=== PATIENT | female | born 1955 | race Caucasian/White ===

== ENCOUNTER → 2016-08-31 | Outpatient (CLI) | payer BC ==
--- NOTE | 2016-09-01 03:11 | REP ---
Clinical: Cough . Comparison: None . Technique: PA and lateral. Findings: The mediastinum and cardiac silhouette are normal. The lung castaneda are clear and without acute consolidation, effusion, or pneumothorax. The skeletal structures are intact and normal. Impression: 1. No acute cardiopulmonary process. Signed by Nicolas Smith MD 09/01/2016 03:03 A
== END ==
LOC: M WUC 18:15
PROVIDERS: ATTEND Physician Assistant
DX: R05 Cough (principal)

== ENCOUNTER → 2016-12-01 | Outpatient (CLI) | payer BC ==
--- NOTE | 2016-12-01 10:39 | REP ---
Bilateral screening digital mammogram: There are no palpable abnormalities or other breast complaints. The patient states she/he had a clinical breast exam in November 2016. Comparison is 11/09/2012. There is dense breast parenchyma, unchanged. There has been no interval development of masses, areas of structural distortion or clusters of microcalcifications typical of malignancy. Impression: There is no evidence of malignancy. BI-RADS/ACR category 1 mammogram. Negative mammogram. The patient should have a repeat mammogram in 1 year. This mammogram was interpreted with the aid of an FDA-approved computer-aided detection system. A. Negative x-ray reports should not delay biopsy if a dominant or clinically suspicious mass is present. B. Not all breast cancers are not identified by x-ray. C. Adenosis and dense breasts may obscure an underlying neoplasm. The patient letter being requested is M1 dense breasts .
== END ==
LOC: M WHC 08:36
PROVIDERS: ATTEND Nurse Practitioner Family
DX: Z12.31 Encounter for screening mammogram for malignant neoplasm of breast (principal)

== ENCOUNTER → 2017-12-02 | Outpatient (CLI) | payer BC | LOC: M WHC 08:00 | DX: Z12.31 Encounter for screening mammogram for malignant neoplasm of breast (principal) | CPT/HCPCS: 77067 ==

== ENCOUNTER → 2017-12-02 | Outpatient (REF) | payer BC ==
[2017-12-04 14:10] LABS: HPV HYBRID CAPTURE II Negative (Negative)
== END ==
LOC: M SFHCWAGY 08:34
DX: Z12.4 Encounter for screening for malignant neoplasm of cervix (principal); N95.2 Postmenopausal atrophic vaginitis
CPT/HCPCS: G0123

== ENCOUNTER → 2018-12-28 | Outpatient (CLI) | payer MEDICARE ==
--- NOTE | 2018-12-28 13:00 | REPMRS ---
Patient History The patient states she had a clinical breast exam in 12/2018. Family history of breast cancer in paternal grandmother, ovarian cancer in paternal cousin. 3 benign cyst aspirations of both breasts. No Hormone Replacement Therapy 3D TOMOSYNTHESIS WAS PERFORMED. [facility] Digital Woman Screen Mammo: December 28, 2018 - Exam #: [id number] Bilateral CC and MLO view(s) were taken. Technologist: Linsey Tom, Technologist Prior study comparison: December 02, 2017, bilateral digital woman screen mammo performed at [facility]. December 01, 2016, digital woman screen mammo performed at [facility]. FINDINGS: The breast tissue is heterogeneously dense. This may lower the sensitivity of mammography. There has been no change in the appearance of the mammogram from the prior studies. There is a moderate amount of residual fibroglandular tissue which is fairly symmetric. There is no interval development of dominant mass, areas of architectural distortion, or clustered microcalcification typical of malignancy. Assessment: BI-RADS/ACR category 1 mammogram. Negative Mammogram. Recommendation Routine screening mammogram in 1 year (for women over age 40). This mammogram was interpreted with the aid of an FDA-approved computer-aided dectection system. Electronically Signed By: Howie Villavicencio MD 12/28/18 1300
== END ==
LOC: M WHC 10:37
PROVIDERS: ATTEND Nurse Practitioner Family
DX: Z01.419 Encounter for gynecological examination (general) (routine) without abnormal findings (principal); Z12.31 Encounter for screening mammogram for malignant neoplasm of breast; Z86.018 Personal history of other benign neoplasm
CPT/HCPCS: 77063; 77067; G0101

== ENCOUNTER → 2019-12-12 | Outpatient (CLI) | payer MEDICARE ==
--- NOTE | 2019-12-12 10:45 | REPMRS ---
Patient History The patient states she had a clinical breast exam in December 2019. Family history of breast cancer in paternal grandmother, ovarian cancer in paternal cousin. 3 benign cyst aspirations of both breasts. No Hormone Replacement Therapy 3D TOMOSYNTHESIS WAS PERFORMED. [facility] Volpara breast density b. Digital Woman Screen Mammo: December 12, 2019 - Exam #: [id number] Bilateral CC and MLO view(s) were taken. Technologist: RT Kelly Prior study comparison: December 28, 2018, bilateral digital woman screen mammo performed at [facility]. December 02, 2017, bilateral digital woman screen mammo performed at [facility]. FINDINGS: There are scattered fibroglandular densities. There has been no change in the appearance of the mammogram from the prior studies. There is a mild amount of residual fibroglandular tissue which is fairly symmetric. There is no interval development of dominant mass, architectural distortion, or clustered microcalcification suggestive of malignancy. Assessment: BI-RADS/ACR category 1 mammogram. Negative Mammogram. Recommendation Routine screening mammogram in 1 year (for women over age 40). This mammogram was interpreted with the aid of an FDA-approved computer-aided dectection system. Electronically Signed By: Howie Villavicencio MD 12/12/19 0512
== END ==
LOC: M WHC 09:33
PROVIDERS: ATTEND Nurse Practitioner Family
DX: Z01.419 Encounter for gynecological examination (general) (routine) without abnormal findings (principal); Z12.31 Encounter for screening mammogram for malignant neoplasm of breast; Z86.018 Personal history of other benign neoplasm
CPT/HCPCS: 77063; 77067; G0101; G0123

== ENCOUNTER → 2019-12-12 | Outpatient (REF) | payer MEDICARE | LOC: M SFHCWAGY 19:09 | PROVIDERS: ATTEND Nurse Practitioner Family | DX: Z12.4 Encounter for screening for malignant neoplasm of cervix (principal); N95.8 Other specified menopausal and perimenopausal disorders ==

== ENCOUNTER → 2019-12-15 | Outpatient (CLI) | payer MEDICARE ==
--- NOTE | 2019-12-15 09:51 | DEXA ---
INDICATION: N95.1 MENOPAUSAL. Patient is status post bilateral hip arthroplasty. COMPARISON: Comparison study November 09, 2012.. TECHNIQUE: Bone density was measured using dual-energy x-ray absorptionmetry (DEXA). FINDINGS: AP SPINE L1-L4 BMD 1.155 g/cm2 Young Adult T-Score -0.3 Age Matched Z-Score 1.3. LT forearm, TOTAL BMD 0.585 g/cm2 Young Adult T-Score -1.5 Age Matched Z-Score 0.0. IMPRESSION: There is normal bone density of the spine. There is low bone density of the left forearm. The density of the spine has increased 0.6% since the initial exam on November 09, 2012. FOLLOW-UP: Recommendation for the next bone density exam: 2 years. <Electronically signed by Daniel Booth > 12/15/19 0915
== END ==
LOC: M WHC 07:54
PROVIDERS: ATTEND Nurse Practitioner Family
DX: N95.1 Menopausal and female climacteric states (principal); M85.832 Other specified disorders of bone density and structure, left forearm

== ENCOUNTER → 2019-12-22 | Outpatient (CLI) | payer MEDICARE ==
--- NOTE | 2019-12-22 15:19 | REP ---
INDICATION: LESION RT UPPER QUAD OF ABD. COMPARISON: None available at this time. TECHNIQUE: Axial images through the abdomen with coronal and sagittal reconstructions provided. No oral or IV contrast per request FINDINGS: CT abdomen: Lung bases are clear. No infiltrate or effusion. The heart is not enlarged there is no pericardial thickening or effusion see no high hiatal hernia. There is no hepatosplenomegaly, focal hepatic or splenic mass nor intrahepatic biliary dilatation. The gallbladder shows a conglomerate cholelithiasis with a least 3 the laminated gallstones abutting each other and surrounded by a shroud of calcium for length of 6.7 cm x 3.1 x 2.6 cm. There is no stone in the common duct in the yahir hepatis or pancreatic head region. The pancreas was unremarkable. Adrenal glands were normal and the kidneys show no stone, mass, cyst or hydronephrosis. No perinephric fluid. The aorta is unremarkable. There is some marginal osteophytes in the thoracic spine but and upper lumbar region without compression fracture or malalignment. No ascites, abdominal, periaortic or retroperitoneal lymphadenopathy. Small bowel loops unremarkable. Visualized abdominal portion of the colon intact. IMPRESSION: 1. Least 3 laminated gallstones abutting each other and with contiguous calcific shroud covering them for 6.7 x 3.1 x 2.6 cm. No biliary dilatation, 2. Paddock or other intra-ascites nor other acute findings in the abdomen and pelvis. <Electronically signed by Jose Daniel Godinez > 12/22/19 7813
== END ==
LOC: M RAD 14:24
PROVIDERS: ATTEND Orthopaedic Surgery
DX: K80.20 Calculus of gallbladder without cholecystitis without obstruction (principal); M54.5 Low back pain

== ENCOUNTER → 2020-09-21 | Outpatient (CLI) | payer MEDICARE ==
[~2020-09-21] MED LIST: ECOT81TA5 PO; LATA0.0015 OU; OMEP-218 PO; TIMO0.5S29 OU
== END ==
LOC: M LABSMTC 09:48
PROVIDERS: ATTEND Anesthesiology
DX: Z01.818 Encounter for other preprocedural examination (principal); Z11.52 Encounter for screening for COVID-19

== ENCOUNTER → 2020-09-21 | Outpatient (CLI) | payer MEDICARE ==
--- NOTE | 2020-09-21 14:47 | ECGEPIP ---
[facility] Test Date: 2020-09-21 Pat Name: ROGERS KING Department: Room: - Gender: Female [employer] Senior Specialist: leila : 1955 Requested By: Kashif Barajas Order Number: [id number] Reading MD: Zach Arizmendi Measurements Intervals [place] Rate: 50 P: 66 PA: 132 QRS: -10 QRSD: 82 T: 62 QT: 416 QTc: 379 Interpretive Statements Sinus bradycardia No prior ECG available for comparison at the time of interpretation. Electronically Signed on 09-21-2020 14:46:45 EDT by Zcah Arizmendi
== END ==
LOC: M LAB 10:16
PROVIDERS: ATTEND Surgery
DX: Z01.818 Encounter for other preprocedural examination (principal); K82.9 Disease of gallbladder, unspecified; Z11.52 Encounter for screening for COVID-19
CPT/HCPCS: 93005; U0003

== ENCOUNTER 2020-09-26 06:55 | Day surgery (SDC) | payer MEDICARE ==
[~2020-09-26] VITALS: Ht 160 cm; Wt 71.4 kg
[~2020-09-26 06:55] MED LIST changes: +LIDOCAINE 1% MDV 20ML VIAL SQ PRN; +LR 1,000 ML IV ONE
[2020-09-26] MEDS ORDERED: BUPIVACAINE HCL 0.25% 30ML VIAL As Ordered ONE (08:03)
[2020-09-26] MEDS ORDERED: MIDAZOLAM INJ 2MG/2ML VIAL (J2250 PER 1MG) As Ordered ONE (08:15)
[2020-09-26] MEDS ORDERED: LIDOCAINE 2% 100MG/5ML SDV (FOR ANES.) As Ordered ONE (08:16)
[2020-09-26] MEDS ORDERED: ROCURONIUM BROMIDE 50 MG/5 ML VIAL As Ordered ONE (08:16)
[2020-09-26] MEDS ORDERED: fentaNYL 100 MCG/2 ML INJECTION (J3010) As Ordered ONE ×2 (08:16→09:09)
[2020-09-26] MEDS ORDERED: ONDANSETRON 4MG/2ML VIAL As Ordered ONE (08:16)
[2020-09-26] MEDS ORDERED: dexameTHASONE 4 MG/ML 1ML VIAL (J1100 PER 1MG) As Ordered ONE (08:16)
[2020-09-26] MEDS ORDERED: propofoL 200 MG/20 ML VIAL As Ordered ONE (08:16)
[2020-09-26] MEDS ORDERED: ACETAMINOPHEN 1000MG 100ML IV BTL (OFIRMEV) (J0131 PER 10MG) As Ordered ONE (08:51)
[2020-09-26] MEDS ORDERED: GLYCOPYRROLATE INJ 0.2 MG/ML 2 ML VIAL As Ordered ONE (09:03)
[2020-09-26] MEDS ORDERED: SUGAMMADEX SODIUM 500 MG/5 ML VIAL (BRIDION) As Ordered ONE (09:18)
[2020-09-26] MEDS ORDERED: KETOROLAC 60MG 2ML VIAL As Ordered ONE (09:19)
[2020-09-26] MEDS ORDERED: ePHEDrine SULFATE 25 MG/5 ML(5MG/ML) SYRINGE As Ordered ONE (09:31)
[2020-09-26] MEDS ORDERED: PHENYLephrine 500MCG 5ML (100MCG/ML) SYRINGE As Ordered ONE (09:50)
[2020-09-26] MEDS ORDERED: DESFLURANE 240 ML INHALANT As Ordered ONE (10:01)
[2020-09-26] MEDS ORDERED: oxyCODONE 5MG TAB PO PRN (10:35)
[2020-09-26] MEDS ORDERED: fentaNYL 100 MCG/2 ML INJECTION (J3010) IV PRN (10:35)
[2020-09-26] MEDS ORDERED: LR 1,000 ML IV SCH (10:35)
[2020-09-26] MEDS ORDERED: ONDANSETRON 4MG/2ML VIAL IV PRN (10:35)
[2020-09-26] MEDS ORDERED: IBUPROFEN 600MG TAB PO PRN (10:50)
[2020-09-26] MEDS ORDERED: NORCO, ANEXSIA 5/325MG TABLET (HYDROcodone/ACETAMINOPHEN) PO PRN (10:50)
[2020-09-26] MEDS ORDERED: ACETAMINOPHEN TAB 650MG DOSE (2X325MG) PO PRN (10:50)
[2020-09-26 12:00] VITALS: BP 122/58
--- NOTE | 2020-09-26 13:44 | RO ---
OPERATIVE NOTE DATE OF OPERATION: 09/26/2020 PREOPERATIVE DIAGNOSIS: Gallstones. POSTOPERATIVE DIAGNOSIS: Gallstones. PROCEDURE PERFORMED: Robotic-assisted laparoscopic cholecystectomy. SURGEON: Kashif Barajas MD PRACTICE SUPPORT SPECIALIST: KASSANDRA [place]. Deb's assistance was essential in managing the robotic instrumentation. She assisted with placement of trocars, change of instruments, placement of the retrieval pouch, removal of the specimen and closure of the incisions. ANESTHESIA: General. INDICATIONS FOR THE PROCEDURE: The patient is a 64-year-old woman who was found on imaging to have multiple large stones within the gallbladder. She did not report any definite symptoms of biliary colic. After discussion, she elected to proceed with cholecystectomy. OPERATIVE PROCEDURE: The patient was brought to the operating room and placed on the table in a supine position. She was placed under general endotracheal anesthesia. The patient's abdomen was prepped and draped in a sterile fashion. 1/4% Marcaine was infiltrated at the trocar sites as needed. A short transverse incision was made in the patient's left upper abdomen. A Veress needle was inserted and after a positive hanging drop test, the abdomen was insufflated with carbon dioxide gas. An 8 mm robotic port was placed over the scope and advanced to the abdominal wall without difficulty. Initial examination showed a normal appearing liver. The gallbladder was not initially visible. Portions of the stomach were normal and the remainder of the bowel was covered by omentum. A second 8 mm port was placed just below the umbilicus and two ports were placed in the right lower quadrant. The patient was tilted to a 15 degree reverse Trendelenburg position and rolled approximately 5-7 degrees to the left. The patient cart of the da Kat XI robot was brought into position and the endoscope arm was docked to the infraumbilical port. Targeting took place in the right upper quadrant and the additional arms were then docked. A hook cautery was placed in the left upper quadrant and a fenestrated bipolar and grasping retractor were placed in the right lower quadrant. I then moved to the control console to proceed. Initially the edge of the liver was elevated and the gallbladder was identified. The patient was found to have fairly diffuse filmy adhesions between the gallbladder and the surrounding omentum and duodenum. These were lysed using the cautery during the course of dissection. The gallbladder was somewhat distended but did not appear acutely inflamed. There were multiple large stones identified within the gallbladder. The gallbladder was grasped and elevated. Dissection began at the gallbladder neck area. The peritoneum was incised using the hook cautery. The cystic duct and the cholecystic artery were both clearly identified and dissected free circumferentially. The cholecystic artery and cystic duct were then both doubly clipped with Hem-o-sebastien clips and divided with scissors. The gallbladder was then dissected free from the gallbladder bed using cautery dissection. The gallbladder was not perforated in the course of dissection. The gallbladder was placed in an Endopouch. Final inspection in the right upper quadrant revealed no evidence of bleeding or bile leak. The robotic instruments were withdrawn and the patient cart was undocked and withdrawn. I then returned to the patient's side. A laparoscopic camera and a grasper were inserted and the string of the pouch was retrieved through the infraumbilical port site. Ports were all used to vent the abdomen and these were then removed. The patient was returned to a flat position. It was necessary to extend the infraumbilical incision to approximately 3 to 3-1/2 cm to allow passage of the large stones through the abdominal wall. The peritoneum at the site was closed with a running suture of 0 Vicryl. A running suture of 2-0 PDS was then used to close the fascia. The subcutaneous tissues were approximated with several sutures of 3-0 Chromic. The skin incisions were all closed with buried sutures of 4-0 Vicryl and Steri-Strips. Light dressings were applied. Palpation of the gallbladder revealed multiple large stones up to approximately 2-3 cm in maximum diameter. This was sent for permanent pathology. The patient was then awakened in the operating room, extubated and moved to the recovery room in stable condition.
== END 2020-09-26 12:08 | disposition home or self-care (01) ==
LOC: M SDC 06:55
PROVIDERS: ATTEND Surgery
DX: K80.00 Calculus of gallbladder with acute cholecystitis without obstruction (principal); K66.0 Peritoneal adhesions (postprocedural) (postinfection); Z79.899 Other long term (current) drug therapy
CPT/HCPCS: 47562; 88304; J0131; J1100; J1885; J2250; J2370; J2405; J3010; S2900

== ENCOUNTER → 2020-10-10 | Outpatient (CLI) | payer MEDICARE ==
[~2020-10-10] MED LIST changes: -LIDOCAINE 1% MDV 20ML VIAL SQ PRN; -LR 1,000 ML IV ONE
== END ==
LOC: M RAD 11:44
PROVIDERS: ATTEND Physician Assistant
DX: M79.605 Pain in left leg (principal)

== ENCOUNTER → 2021-01-15 | Outpatient (REF) | payer MEDICARE ==
[~2021-01-15] MED LIST changes: +OMEP-173 PO; -OMEP-218 PO
== END ==
LOC: M SFHCWAGY 13:26
PROVIDERS: ATTEND Nurse Practitioner Women's Health
DX: Z12.4 Encounter for screening for malignant neoplasm of cervix (principal)

== ENCOUNTER → 2021-01-15 | Outpatient (CLI) | payer MEDICARE | LOC: M WHC 07:26 | PROVIDERS: ATTEND Nurse Practitioner Women's Health | DX: Z12.31 Encounter for screening mammogram for malignant neoplasm of breast (principal); Z12.4 Encounter for screening for malignant neoplasm of cervix; Z78.0 Asymptomatic menopausal state; Z86.018 Personal history of other benign neoplasm | CPT/HCPCS: 77063; 77067; 87624; G0101; G0123 ==

== ENCOUNTER → 2022-04-30 | Outpatient (CLI) | payer MEDICARE | LOC: M WHC 13:16 | PROVIDERS: ATTEND Nurse Practitioner Family | DX: Z01.419 Encounter for gynecological examination (general) (routine) without abnormal findings (principal); Z12.31 Encounter for screening mammogram for malignant neoplasm of breast; Z13.820 Encounter for screening for osteoporosis; M85.822 Other specified disorders of bone density and structure, left upper arm; R92.8 Other abnormal and inconclusive findings on diagnostic imaging of breast | CPT/HCPCS: 77063; 77067; 77080; G0101 ==

== ENCOUNTER → 2022-05-20 | Outpatient (CLI) | payer MEDICARE ==
[~2022-05-20] MED LIST changes: +TIMO0.5S20 OU; -TIMO0.5S29 OU
== END ==
LOC: M WHC 12:33
PROVIDERS: ATTEND Nurse Practitioner Family
DX: Z12.31 Encounter for screening mammogram for malignant neoplasm of breast (principal)

== ENCOUNTER → 2023-06-14 | Outpatient (CLI) | payer MEDICARE ==
[~2023-06-14] MED LIST changes: +ESSETAB4 PO; +NOXI1TAB PO
== END ==
LOC: M WHC 07:31
PROVIDERS: ATTEND Nurse Practitioner Family
DX: M81.0 Age-related osteoporosis without current pathological fracture (principal)

== ENCOUNTER → 2024-05-01 | Outpatient (CLI) | payer OTHER | LOC: M WHC 09:56 | PROVIDERS: ATTEND Internal Medicine | DX: M81.0 Age-related osteoporosis without current pathological fracture (principal) ==